=== PATIENT | female | born 1950 | race Caucasian/White ===

== ENCOUNTER 2016-10-03 07:14 | Emergency (ER) | payer MEDICAID ==
[2016-10-03 07:22] VITALS: TEMP 99
[2016-10-03] MEDS ORDERED: Sodium Chloride 0.9% 1,000 ML IV ONE (07:50)
[2016-10-03] MEDS ORDERED: Morphine 4 MG/ML VIAL IV STA (07:52)
--- NOTE | 2016-10-03 07:59 | C.PDOC ---
History Of Present Illness 66 y/o female presents to the ED with complaints of abdominal pain x1 day with associated nausea. Denies fever, vomiting, diarrhea, urinary symptoms or any other complaints. Time Seen by Provider: 10/03/16 07:27 Chief Complaint (Nursing): Abdominal Pain History Per: Patient History/Exam Limitations: no limitations Onset/Duration Of Symptoms: Hrs Current Symptoms Are (Timing): Still Present Severity: Moderate Location Of Pain/Discomfort: Diffuse Radiation Of Pain To:: None Quality Of Discomfort: "Pain" Associated Symptoms: Nausea. denies: Fever, Vomiting, Diarrhea, Urinary Symptoms Exacerbating Factors: None Alleviating Factors: None Recent travel outside of the [place]: No Past Medical History Reviewed: Historical Data, Nursing Documentation, Vital Signs Vital Signs: Last Vital Signs Temp 99 F 10/03/16 07:18 Pulse 84 10/03/16 12:05 Resp 20 10/03/16 12:05 BP 133/77 10/03/16 12:05 Pulse Ox 97 10/03/16 12:28 - Medical History PMH: Asthma (LAST ATTACK 11/07/15), HTN Surgical History: Cholecystectomy, Tonsillectomy Family History: States: Unknown Family Hx - Social History Hx Tobacco Use: No Hx Alcohol Use: No Hx Substance Use: No - Immunization History Hx Tetanus Toxoid Vaccination: No Hx Influenza Vaccination: No Hx Pneumococcal Vaccination: No Review Of Systems Except As Marked, All Systems Reviewed And Found Negative. Constitutional: Negative for: Fever Gastrointestinal: Positive for: Nausea, Abdominal Pain. Negative for: Vomiting , Diarrhea Genitourinary: Negative for: Dysuria, Frequency, Hematuria Physical Exam - Physical Exam Appears: Non-toxic, No Acute Distress, Other (emesis bag in hand) Skin: Warm, Dry, No Rash Head: Atraumatic, Normacephalic Neck: Normal, Normal ROM, Supple Chest: Symmetrical Cardiovascular: Rhythm Regular, No Murmur Respiratory: Normal Breath Sounds, No Rales, No Rhonchi, No Wheezing Gastrointestinal/Abdominal: Soft, Tenderness (RUQ), No Guarding, No Rebound Back: Normal Inspection Extremity: Bilateral: Atraumatic Neurological/Psych: Oriented x3, Normal Speech ED Course And Treatment - Laboratory Results Result Diagrams: 10/03/16 08:10 10/03/16 08:10 Lab Interpretation: Normal O2 Sat by Pulse Oximetry: 97 (room air) Pulse Ox Interpretation: Normal - Other Rad No standard instances X-Ray: Read By Radiologist Interpretation: FINDINGS: LOWER THORAX: Unremarkable. LIVER: Unremarkable. No gross lesion or ductal dilatation. GALLBLADDER AND BILE DUCTS: Status post cholecystectomy. Common bile duct dilated up to 12 mm diameter. Consistent with prior cholecystectomy. No intrahepatic biliary ductal dilatation appreciated. PANCREAS: Unremarkable. No gross lesion or ductal dilatation. SPLEEN: Unremarkable. ADRENALS: Unremarkable. No mass. KIDNEYS AND URETERS: 4.6 cm left upper pole renal cortical cyst. 7 mm fatty attenuation lesion in the lower pole left kidney, nonspecific. Possible small angiomyolipoma. No renal calculus or hydronephrosis. VASCULATURE: Unremarkable. No aortic aneurysm. BOWEL: Mild mural thickening and mild surrounding inflammatory change involving the ascending colon and cecum, most prominent about the cecum. Suspect infectious or inflammatory colitis. No evidence of focal diverticulitis. Consider colonoscopy following clearing of this presumed nonspecific colitis, to exclude neoplasm. There are a few shotty pericecal lymph nodes identified, subcentimeter in size. . . . There are scattered colonic diverticula seen elsewhere. There is no evidence bowel obstruction. APPENDIX: Unremarkable. Normal appendix. PERITONEUM: Unremarkable. No free fluid. No free air. LYMPH NODES: No enlarged retroperitoneal or pelvic lymph nodes are identified. BLADDER: Unremarkable. REPRODUCTIVE: Unremarkable uterus. BONES: No acute fracture. OTHER FINDINGS: None. IMPRESSION: Mild mural thickening and surrounding inflammatory change involving the cecum and ascending colon. Consistent nonspecific colitis. This may be infectious or inflammatory in etiology. No other acute abnormality. Minor findings as above. - CT Scan/US US abdomen Other Rad Studies (CT/US): Read By Radiologist, Radiology Report Reviewed CT/US Interpretation: HISTORY: Pain. COMPARISON: None. TECHNIQUE: Sonographic evaluation of the abdomen. FINDINGS: LIVER: Measures 13.3 cm. Diffusely increased echogenicity of the liver parenchyma. Consistent with fatty infiltration. Smooth contour. No mass. No intrahepatic biliary ductal dilatation. GALLBLADDER: Status post cholecystectomy. COMMON BILE DUCT: Common bile duct measures 12 mm in diameter. This is likely due to both prior cholecystectomy and age related ectasia. PANCREAS: Unremarkable as visualized. No mass. No ductal dilatation. RIGHT KIDNEY: Measures 9.3cm. Normal echogenicity. No calculus, mass, or hydronephrosis. LEFT KIDNEY: Measures 10.5cm. Cortical cyst, 5.2 x 3.9 x 5.1 cm. No solid mass. No calculus or hydronephrosis. SPLEEN: Normal in size and contour. No mass. AORTA: No aneurysmal dilatation. IVC: Unremarkable. OTHER FINDINGS: None. IMPRESSION : Mild fatty infiltration of the liver. Status post cholecystectomy. Dilated common bile duct likely due to prior cholecystectomy and age related ectasia. 5.2 cm left renal cortical cyst. No additional abnormality. Progress Note: Plan: US abdomen, labs, morphine, zofran, IV fluids, UA Disposition Counseled Patient/Family Regarding: Studies Performed, Diagnosis, Need For Followup, Rx Given - Disposition Referrals: [facility] [Outside] [facility] [Outside] Disposition Time: 13:00 Condition: STABLE Additional Instructions: return to ED if any increase symptoms Prescriptions: Ibuprofen [Motrin] 1 tab PO TID PRN #30 tab PRN Reason: Pain Instructions: Acute Abdominal Pain (ED) Print Language: LUXEMBOURGER - POA Present On Arrival: None - Clinical Impression Clinical Impression: Abdominal pain - PA / DATABASE ADMIN / Resident Statement MD/DO has reviewed & agrees with the documentation as recorded. - Scribe Statement The provider has reviewed the documentation as recorded by the Ag Tobar All medical record entries made by the Ag were at my direction and personally dictated by me. I have reviewed the chart and agree that the record accurately reflects my personal performance of the history, physical exam, medical decision making, and the department course for this patient. I have also personally directed, reviewed, and agree with the discharge instructions and disposition.
[2016-10-03] MEDS ORDERED: Sodium Chloride 0.9% 1,000 ML ONE (08:12)
[2016-10-03] MEDS ORDERED: Morphine 4 MG/ML VIAL ONE (08:12)
[2016-10-03 08:20] LABS: BASO % 0.3 % (0.0-2.0); EOS % 0.2 % (0.0-4.0); HEMATOCRIT 37.9 % (34.0-47.0); LYMPH # 0.6 K/uL (1.0-4.3); LYMPH % 9.5 % (20.0-40.0); MEAN CELL VOLUME 88.6 fL (81.0-99.0); MEAN CORPUSCULAR HEMOGLOBIN 29.8 pg (27.0-31.0); MEAN CORPUSCULAR HGB CONC 33.6 g/dL (33.0-37.0); MEAN PLATELET VOLUME 7.5 fL (7.2-11.7); MONO # 0.3 K/uL (0.0-0.8); MONO % 4.7 % (0.0-10.0); PLATELET COUNT 208 K/uL (130-400); RED CELL DISTRIBUTION WIDTH 12.6 % (11.5-14.5); WHITE BLOOD COUNT 5.8 K/uL (4.8-10.8)
[2016-10-03 08:21] LABS: CHLORIDE 104 mmol/L (98-107)
[2016-10-03 08:22] LABS: POTASSIUM 3.9 mmol/L (3.6-5.2); SODIUM 140 mmol/L (132-148)
[2016-10-03 08:23] LABS: GFR AFRICAN-AMERICAN > 60
[2016-10-03 08:24] LABS: ALB/GLOB RATIO 1.2 (1.0-2.1); ALKALINE PHOSPHATASE 129 U/L (38-126); ALT/SGPT 297 U/L (9-52); AST/SGOT 500 U/L (14-36); BILIRUBIN,TOTAL 1.4 mg/dL (0.2-1.3); BLOOD UREA NITROGEN 10 mg/dL (7-17); CARBON DIOXIDE 27 mmol/L (22-30); GLUCOSE,RANDOM 104 mg/dL (65-105); TOTAL PROTEIN 7.1 g/dL (6.3-8.3)
[2016-10-03 08:25] LABS: CALCIUM 9.1 mg/dl (8.6-10.4); RBC URINE 24 /hpf (0-3); URINE BILIRUBIN NEGATIVE (NEGATIVE); URINE BLOOD 2+ (NEGATIVE); URINE COLOR Yellow (YELLOW); URINE GLUCOSE (UA) NORMAL (Normal); URINE KETONE NEGATIVE (NEGATIVE); URINE LEUKOCYTE ESTERASE TRACE Leu/uL (Negative); URINE PROTEIN NEGATIVE (NEGATIVE); URINE UROBILINOGEN NORMAL mg/dL (0.2-1.0); WBC URINE 4 /hpf (0-5)
[2016-10-03 09:00] LABS: NEUTROPHIL 89 % (50-75); TOTAL CELLS COUNTED 100
--- NOTE | 2016-10-03 09:58 | US ---
HISTORY: Pain COMPARISON: None. TECHNIQUE: Sonographic evaluation of the abdomen. FINDINGS: LIVER: Measures 13.3 cm. Diffusely increased echogenicity of the liver parenchyma. Consistent with fatty infiltration. Smooth contour. No mass. No intrahepatic biliary ductal dilatation. GALLBLADDER: Status post cholecystectomy. COMMON BILE DUCT: Common bile duct measures 12 mm in diameter. This is likely due to both prior cholecystectomy and age related ectasia. PANCREAS: Unremarkable as visualized. No mass. No ductal dilatation. RIGHT KIDNEY: Measures 9.3cm. Normal echogenicity. No calculus, mass, or hydronephrosis. LEFT KIDNEY: Measures 10.5cm. Cortical cyst, 5.2 x 3.9 x 5.1 cm. No solid mass. No calculus or hydronephrosis. SPLEEN: Normal in size and contour. No mass. AORTA: No aneurysmal dilatation. IVC: Unremarkable. OTHER FINDINGS: None. IMPRESSION: Mild fatty infiltration of the liver. Status post cholecystectomy. Dilated common bile duct likely due to prior cholecystectomy and age related ectasia. 5.2 cm left renal cortical cyst. No additional abnormality.
[2016-10-03 12:06] VITALS: BP 133/77; PULSE 84; RESP 20
--- NOTE | 2016-10-03 12:17 | CT ---
PROCEDURE: CT Abdomen and Pelvis without intravenous contrast HISTORY: Pain COMPARISON: None. TECHNIQUE: Without contrast.. Contrast Dose: 0 Radiation dose: Total exam DLP = 694.16 mGy-cm. This CT exam was performed using one or more of the following dose reduction techniques: Automated exposure control, adjustment of the mA and/or kV according to patient size, and/or use of iterative reconstruction technique. FINDINGS: LOWER THORAX: Unremarkable. LIVER: Unremarkable. No gross lesion or ductal dilatation. GALLBLADDER AND BILE DUCTS: Status post cholecystectomy. Common bile duct dilated up to 12 mm diameter. Consistent with prior cholecystectomy. No intrahepatic biliary ductal dilatation appreciated. PANCREAS: Unremarkable. No gross lesion or ductal dilatation. SPLEEN: Unremarkable. ADRENALS: Unremarkable. No mass. KIDNEYS AND URETERS: 4.6 cm left upper pole renal cortical cyst. 7 mm fatty attenuation lesion in the lower pole left kidney, nonspecific. Possible small angiomyolipoma. No renal calculus or hydronephrosis. VASCULATURE: Unremarkable. No aortic aneurysm. BOWEL: Mild mural thickening and mild surrounding inflammatory change involving the ascending colon and cecum, most prominent about the cecum. Suspect infectious or inflammatory colitis. No evidence of focal diverticulitis. Consider colonoscopy following clearing of this presumed nonspecific colitis, to exclude neoplasm. There are a few shotty pericecal lymph nodes identified, subcentimeter in size. . . . There are scattered colonic diverticula seen elsewhere. There is no evidence bowel obstruction. APPENDIX: Unremarkable. Normal appendix. PERITONEUM: Unremarkable. No free fluid. No free air. LYMPH NODES: No enlarged retroperitoneal or pelvic lymph nodes are identified. BLADDER: Unremarkable. REPRODUCTIVE: Unremarkable uterus. BONES: No acute fracture. OTHER FINDINGS: None. IMPRESSION: Mild mural thickening and surrounding inflammatory change involving the cecum and ascending colon. Consistent nonspecific colitis. This may be infectious or inflammatory in etiology. No other acute abnormality. Minor findings as above.
[2016-10-03 12:29] VITALS: O2SAT 97
== END 2016-10-03 12:58 | disposition home or self-care (01) ==
LOC: C.ER 07:14
DX: R10.11 Right upper quadrant pain (principal)
CPT/HCPCS: 74176; 76700; 80053; 81001; 83690; 85025; 96361; 96374; 96375; 99285; J2270; J2405; J7040